=== PATIENT | male | born 1995 | race American Indian/Alaskan Native ===

== ENCOUNTER 2021-03-13 02:07 | Emergency (ER) | payer SELFPAY ==
[2021-03-13 02:41] VITALS: BP 148/75
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
== END 2021-03-13 08:17 | disposition home or self-care (01) ==
LOC: ED 02:07
DX: S40.811A Abrasion of right upper arm, initial encounter (principal); S80.812A Abrasion, left lower leg, initial encounter; M79.18 Myalgia, other site; M54.5 Low back pain; M54.6 Pain in thoracic spine; F17.200 Nicotine dependence, unspecified, uncomplicated; Z79.899 Other long term (current) drug therapy; Z88.2 Allergy status to sulfonamides; Z88.8 Allergy status to other drugs, medicaments and biological substances; V49.59XA Passenger injured in collision with other motor vehicles in traffic accident, initial encounter; Y92.410 Unspecified street and highway as the place of occurrence of the external cause; Y93.89 Activity, other specified; Y99.8 Other external cause status
CPT/HCPCS: 99281